=== PATIENT | male | born 1990 | race African-American/Black ===

== ENCOUNTER 2016-12-24 23:26 | Emergency (ER) | payer OTHER ==
[~2016-12-24] VITALS: Ht 183.5 cm; Wt 93.0 kg
[2016-12-24 23:58] VITALS: BP 129/65
--- NOTE | 2016-12-25 00:16 | Emergency Room Report ---
History of Present Illness General Chief Complaint: Chest Pain Source: Patient Present Illness HPI This is a 26-year-old male with a history of asthma as a kid. He said he outgrew it. He's been complaining of chest tightness and shortness of breath on and off for months. Worse with exertion. Worse around smoke. Symptom never hard time sleeping. No fever chills but no nausea no vomiting. No diaphoresis. No radiation. Second complaint is that he gets chest tightness and pain in his throat when he lays down. No melena pain. No vomiting or diarrhea. Allergies: Coded Allergies: No Known Allergies (Unverified , 12/24/16) Patient History Past Medical History: see triage record, old chart reviewed, asthma Past Surgical History: other Pertinent Family History: none Social History: Denies: alcohol use, drug use, smoking Immunizations: other Reviewed Nursing Documentation: PMH: Agreed, PSxH: Agreed Nursing Documentation-PMH Past Medical History: No History, Except For Hx Asthma: Yes Review of Systems Eye: Denies: blurred vision, eye pain ENT: Denies: ear pain, nose congestion, throat swelling Respiratory: Reports: shortness of breath, Denies: cough Cardiovascular: Reports: chest pain, Denies: palpitations Gastrointestinal: Denies: abdominal pain, diarrhea, nausea, vomiting Musculoskeletal: Denies: back pain, joint pain Skin: Denies: rash Neurological: Denies: headache, numbness Endocrine: Denies: increased thirst, increased urine Hematologic/Lymphatic: Denies: easy bruising All Other Systems: negative except mentioned in HPI Physical Exam Vital Signs Date Time Temp Pulse Resp B/P Pulse Ox O2 Delivery O2 Flow Rate FiO2 12/24/16 23:32 98.1 73 19 129/65 98 Room Air vitals normal Sp02 EP Interpretation: reviewed, normal General Appearance: well appearing, no apparent distress, alert Head: normocephalic, atraumatic Eyes: bilateral eye EOMI, bilateral eye PERRL ENT: hearing grossly normal, normal pharynx Neck: full range of motion, supple, no meningismus Respiratory: chest non-tender, lungs clear, normal breath sounds Cardiovascular #1: regular rate, rhythm, no murmur Gastrointestinal: normal bowel sounds, non tender, no mass, no organomegaly, no bruit, non-distended Musculoskeletal: back normal, gait/station normal, normal range of motion Psychiatric: mood/affect normal Skin: warm/dry Medical Decision Making Diagnostic Impression: Primary Impression: Chest pain Qualified Codes: R07.1 - Chest pain on breathing Additional Impressions: Asthma Qualified Codes: J45.20 - Mild intermittent asthma, uncomplicated GERD (gastroesophageal reflux disease) Qualified Codes: K21.9 - Gastro-esophageal reflux disease without esophagitis ER Course Patient with atypical chest pain. This is noncardiac. EKG was not done because of it. Probably his asthma exacerbation. We'll discharge home. He is somewhat he may have some reflux issue also. No evidence of ACS, PE, dissection to name a few. Chest X-Ray Diagnostic Results Chest X-Ray Diagnostic Results : Chest X-Ray Ordered: Yes # of Views/Limited/Complete: 1 View Indication: Chest Pain EP Interpretation: Yes Interpretation: no consolidation, no effusion, no pneumothorax, no acute cardiopulmonary disease Impression: No acute disease Interpreting ER Provider: Electronically signed by Homero Gutierrez MD Last Vital Signs Date Time Temp Pulse Resp B/P Pulse Ox O2 Delivery O2 Flow Rate FiO2 12/24/16 23:58 73 19 Room Air 12/24/16 23:58 98.1 129/65 98 Status: improved Disposition: HOME, SELF-CARE Condition: Stable Scripts Omeprazole Magnesium (PRILOSEC OTC) 20 Mg Tablet. 20 MG ORAL DAILY, #30 TAB Prov: HOMERO GUTIERREZ M.D. 12/25/16 Albuterol Sulfate* (ALBUTEROL SULFATE MDI*) 8.5 Gm Hfa.aer.ad 2 PUFF INH Q4H Y for cough/wheezing, #1 EA 0 Refills Prov: HOMERO GUTIERREZ M.D. 12/25/16 Additional Instructions: Followup with your DrCorazon in 2-3 days if not better. Return if symptom worsen. HOMERO GUTIERREZ M.D. Dec 25, 2016 00:16
[2016-12-25] MEDS ORDERED: PRILOSEC OTC20 MG ORAL (00:20)
[2016-12-25] MEDS ORDERED: ALBUTEROL SULF8.5 GM INH (00:20)
[2016-12-25 00:26] VITALS: BP 129/65
--- NOTE | 2016-12-25 10:58 | Diagnostic Imaging Report ---
Indication: Chest pain Technique: One view of the chest Comparison: none Findings: Lungs and pleural spaces are clear. Heart size is normal. Impression: No acute process
== END 2016-12-25 02:25 | disposition home or self-care (01) ==
LOC: EMR 23:55
DX: R07.89 Other chest pain (principal); J45.909 Unspecified asthma, uncomplicated; K21.9 Gastro-esophageal reflux disease without esophagitis
CPT/HCPCS: 71010; 99284

== ENCOUNTER 2018-08-10 02:31 | Emergency (ER) | payer OTHER ==
[~2018-08-10] VITALS: Ht 182.9 cm; Wt 99.3 kg
[~2018-08-10 02:31] MED LIST: ALBUTEROL SULF8.5 GM INH; PRILOSEC OTC20 MG ORAL
--- NOTE | 2018-08-10 02:48 | NUR ---
ED Nurse Note: Pt walked in ER and c/o R leg pain since yesterday. Pain level 10/10. Pt is AO x 4times, VSS, on room air no distress. ABIGAILD seen Pt at bedside.
[2018-08-10 02:56] VITALS: BP 132/68
[2018-08-10] MEDS ORDERED: HYDROmorphone 1mg/ml Carpuject IM ONE (03:15)
[2018-08-10] MEDS ORDERED: IBUPROFEN600 MG ORAL (03:36)
[2018-08-10] MEDS ORDERED: HYDROCODON-ACE1 EA15 ORAL (03:36)
--- NOTE | 2018-08-10 03:37 | Emergency Room Report ---
History of Present Illness General Chief Complaint: Pain Source: Patient Present Illness HPI Is a 28-year-old male with no past medical history. He presents with chief complaint of right lower back right hip pain radiating to the calf. Onset for last to 3 days. No nausea no vomiting. No rhonchi evidence of bowel or urine. No trauma. No fever. Pain is 9 out of 10. Worse with movement. Better with rest. Allergies: Coded Allergies: No Known Allergies (Unverified , 12/24/16) Patient History Past Medical History: see triage record, old chart reviewed Past Surgical History: none Pertinent Family History: none Social History: Denies: smoking Immunizations: other Reviewed Nursing Documentation: PMH: Agreed; PSxH: Agreed Nursing Documentation-PMH Hx Asthma: Yes Review of Systems Eye: Denies: eye pain, blurred vision ENT: Denies: ear pain, nose congestion, throat swelling Respiratory: Denies: cough, shortness of breath Cardiovascular: Denies: chest pain, palpitations Gastrointestinal: Denies: abdominal pain, diarrhea, nausea, vomiting Musculoskeletal: Reports: back pain; Denies: joint pain Skin: Denies: rash Neurological: Denies: headache, numbness Endocrine: Denies: increased thirst, increased urine Hematologic/Lymphatic: Denies: easy bruising All Other Systems: negative except mentioned in HPI Physical Exam Vital Signs Date Time Temp Pulse Resp B/P (MAP) Pulse Ox O2 Delivery O2 Flow Rate FiO2 08/10/18 02:37 98.4 80 16 126/70 96 Room Air vitals normal Sp02 EP Interpretation: reviewed, normal General Appearance: well appearing, no apparent distress, alert Head: normocephalic, atraumatic Eyes: bilateral eye PERRL, bilateral eye EOMI ENT: hearing grossly normal, normal pharynx Neck: full range of motion, supple, no meningismus Respiratory: chest non-tender, lungs clear, normal breath sounds Cardiovascular #1: regular rate, rhythm, no murmur Gastrointestinal: normal bowel sounds, non tender, no mass, no organomegaly, no bruit, non-distended Musculoskeletal: back normal - Tenderness to the right lumbar paraspinous muscle, gait/station normal, normal range of motion Neurologic: alert, oriented x3 Psychiatric: mood/affect normal Skin: warm/dry Medical Decision Making Diagnostic Impression: Primary Impression: Sciatica of right side ER Course Patient presents with symptoms consistent with sciatica. No red flags to indicate cauda equina syndrome, spinal epidural abscess or neoplastic process. We'll discharge home. Last Vital Signs Date Time Temp Pulse Resp B/P (MAP) Pulse Ox O2 Delivery O2 Flow Rate FiO2 08/10/18 02:56 98.3 68 18 132/68 98 Room Air Status: improved Disposition: HOME, SELF-CARE Condition: Stable Scripts Ibuprofen* (MOTRIN*) 600 Mg Tablet 600 MG ORAL THREE TIMES A DAY, #30 TAB 0 Refills Prov: Homero Gutierrez MD 08/10/18 Hydrocodone/Acetaminophen 5-325* (HYDROCODONE/ACETAMINOPHEN 5-325*) 1 Each Tablet 1 TAB ORAL Q6H PRN for For Pain, #20 TAB 0 Refills Prov: Homero Gutierrez MD 08/10/18 Referrals: NON PHYSICIAN (PCP) Additional Instructions: Follow-up with your doctor in 7 days. No heavy lifting. You may need an MRI if symptoms don't improve. Return if symptom worsen. Homero Gutierrez MD Aug 10, 2018 03:37
[2018-08-10 03:45] VITALS: BP 130/70
--- NOTE | 2018-08-10 03:45 | NUR ---
ER DISCHARGE NOTE: Patient is cleared to be discharged per ERMD, pt is aox4, on room air, with stable vital signs. pt was given dc and prescription instructions, pt was able to verbalize understanding, pt id band removed without complications. pt is able to ambulate with steady gait with girlfriend. pt took all belongings.
== END 2018-08-10 03:45 | disposition home or self-care (01) ==
LOC: EMR 02:55
DX: M54.41 Lumbago with sciatica, right side (principal); J45.909 Unspecified asthma, uncomplicated
CPT/HCPCS: 96372; 99283; J1170

== ENCOUNTER 2019-04-17 18:26 | Emergency (ER) | payer OTHER ==
[~2019-04-17] VITALS: Ht 180.3 cm; Wt 104.3 kg
[~2019-04-17 18:26] MED LIST changes: +HYDROCODON-ACE1 EA15 ORAL; +IBUPROFEN600 MG ORAL
--- NOTE | 2019-04-17 18:30 | NUR ---
ED Nurse Note: Patient arrived to ED by car from home stating that he has had a cough and flu-like symptoms for 3 days. He states that he feels 10/10 chest pain only when coughing. Now, at rest, he states he has no pain. Patient Richard x 4, bed in lowest position, patient on the monitor technician. Flu swab sent to lab. Addendum: 04/17/19 at 1856 by TRAN ED Nurse Note: Patient states that he feels the chills while sleeping at night. Sometimes will have to sleep with multiple layers to stay warm, then will be too hot, on and off thorughout the night. Patient currently afebrile, temp 98.8
[2019-04-17 18:35] VITALS: BP_SYST 137; BP_SYST 140; BP_DIAS 101; BP_DIAS 95
--- NOTE | 2019-04-17 18:47 | Emergency Room Report ---
History of Present Illness General Chief Complaint: Upper Respiratory Illness Source: Patient Present Illness HPI 28-year-old male who presents with productive cough for 1 to 2-week duration, reported brown sputum production, And associated subjective fevers. Patient has been reported using NyQuil with no improvement of symptoms. Patient has a history of asthma which he takes an inhaler for. But he denies any wheezing or requiring his inhaler at this time. Patient states he did not get the influenza vaccination this year. Patient otherwise is fully vaccinated.. Allergies: Coded Allergies: No Known Allergies (Unverified , 12/24/16) Nursing Documentation-[facility] Past Medical History: No History, Except For Hx Asthma: Yes Review of Systems Constitutional: Reports: fever; Denies: chills Respiratory: Reports: cough, sputum; Denies: shortness of breath, wheezing Cardiovascular: Denies: chest pain, palpitations Gastrointestinal: Denies: diarrhea, vomiting Genitourinary: Denies: hematuria, pain Musculoskeletal: Denies: joint swelling Skin: Denies: rash, lesions Neurological: Denies: headache, dizziness Physical Exam Vital Signs Date Time Temp Pulse Resp B/P (MAP) Pulse Ox O2 Delivery O2 Flow Rate FiO2 04/17/19 18:28 100.6 111 22 143/103 (116) 95 Room Air Sp02 EP Interpretation: reviewed General Appearance: well appearing, no apparent distress, non-toxic Head: normocephalic, atraumatic Eyes: bilateral eye normal inspection ENT: hearing grossly normal, EOM grossly intact, moist mucus membranes Neck: supple Respiratory: lungs clear, normal breath sounds, no respiratory distress, speaking full sentences Cardiovascular #1: regular rate, rhythm, normal capillary refill Cardiovascular #2: 2+ radial (R), 2+ radial (L) Gastrointestinal: soft, non-distended Rectal: deferred Musculoskeletal: moves extm spontaneously, no lower extremity edema Neurologic: grossly normal Psychiatric: mood/affect normal Skin: warm/dry, normal turgor Medical Decision Making Diagnostic Impression: Primary Impression: Influenza Additional Impression: Atypical pneumonia ER Course 28-year-old male who presents with brown sputum productive cough and subjective fevers for 1 to 2 weeks. Patient did not have influenza vaccination Differential includes: Influenza, pneumonia, asthma exacerbation, upper respiratory infection. Will perform chest x-ray and influenza testing. Lab Results Impression Influenza positive Chest X-Ray Diagnostic Results Chest X-Ray Diagnostic Results : Chest X-Ray Ordered: Yes # of Views/Limited/Complete: 2 View Indication: Shortness of Breath EP Interpretation: Yes Interpretation: no consolidation, other - Increased pulmonary markings consistent with atypical pneumonia Last Vital Signs Date Time Temp Pulse Resp B/P (MAP) Pulse Ox O2 Delivery O2 Flow Rate FiO2 04/17/19 18:28 100.6 111 22 143/103 (116) 95 Room Air Disposition: HOME, SELF-CARE Condition: Stable Scripts Azithromycin* (ZITHROMAX*) 250 Mg Tablet 250 MG ORAL DAILY, #6 TAB 0 Refills Take two tables once daily for 1 day, then one tablet once daily for 4 days. Prov: Harris Hawkins M.D. 04/17/19 Oseltamivir Phosphate (Tamiflu) 75 Mg Capsule 75 MG ORAL TWICE A DAY for 5 Days, #10 CAP Prov: Harris Hawkins M.D. 04/17/19 Patient Instructions: Community-Acquired Pneumonia, Adult Additional Instructions: Please take antibiotics and antivirals as prescribed. Follow-up with your primary care doctor in 2 to 3 days for reevaluation. If symptoms not improving , any new symptoms, such as nausea vomiting, fever above 105, respiratory distress or difficulty breathing. Please return to emergency room for further testing. Harris Hawkins M.D. Apr 17, 2019 18:47
--- NOTE | 2019-04-17 19:02 | NUR ---
ED Nurse Note: received patient from jass mann. patient resting in bed comfortably with no acute distress. assessed temp 102.5. notified ermd; no new orders at this time.
--- NOTE | 2019-04-17 19:04 | NUR ---
HAND-OFF: Report given to Aaron Puri RN.
[2019-04-17 19:06] VITALS: BP 137/95
[2019-04-17] MEDS ORDERED: TAMIFLU75 MG ORAL (19:25)
[2019-04-17] MEDS ORDERED: ZITHROMAX250 MG ORAL (19:25)
--- NOTE | 2019-04-17 19:39 | NUR ---
ED Nurse Note: patient ambulated to bathroom with steady gait. pt aware of pending discharge; waiting for dc papers
[2019-04-17 19:45] VITALS: BP 137/95
--- NOTE | 2019-04-17 19:45 | NUR ---
ER DISCHARGE NOTE: Patient is cleared to be discharged per ERMD, pt is aox4, on room air, with stable vital signs. pt was given dc and prescription instructions, pt was able to verbalize understanding, pt id band removed. pt is able to ambulate with steady gait. pt took all belongings.
--- NOTE | 2019-04-17 19:48 | Diagnostic Imaging Report ---
Indication: Cough Technique: 2 views of the chest Comparison: 12/25/2016 Findings: Lungs and pleural spaces are clear. The heart size is normal. The bones are unremarkable. No significant interim change. Impression: Negative This agrees with the preliminary interpretation provided overnight by [facility] service.
== END 2019-04-17 19:45 | disposition home or self-care (01) ==
LOC: EMR 18:38
DX: J10.00 Influenza due to other identified influenza virus with unspecified type of pneumonia (principal); J45.909 Unspecified asthma, uncomplicated
CPT/HCPCS: 71046; 86710; Z7502; 99283

== ENCOUNTER → 2020-06-30 | Emergency (ER) | payer OTHER ==
[~2020-06-30] VITALS: Ht 185.4 cm; Wt 104.3 kg
[~2020-06-30] MED LIST changes: +FAMOTIDINE20 MG ORAL; +IBUPROFEN600 M1 ORAL; +Ketorolac 30mg Inj IV ONE; +Mylanta II UD 30ml ORAL ONE; +TAMIFLU75 MG ORAL; +ZITHROMAX250 MG ORAL
[2020-06-30 19:23] VITALS: BP 138/77
--- NOTE | 2020-06-30 19:25 | NUR ---
ED Nurse Note: patient came through ambulatory triage complaints of chest pain x3 days when taking in deep breathes, no other complaints, hx of asthma vitals stable patient ambulatory aoX4
--- NOTE | 2020-06-30 19:51 | NUR ---
medication administered, blood drawn and sent to lab
--- NOTE | 2020-06-30 19:51 | Emergency Room Report ---
History of Present Illness General Chief Complaint: Chest Pain Source: Patient Present Illness HPI 4 days ago the patient was drinking a lot of champagne. He woke up with a hangover and was vomiting. He denies vomiting any blood. It started off with bile and then after that he tried drinking water and only vomited water. He has had some diarrhea that is been yellowish-brown but not black or tarry. He den ies any fevers or chills. The pain in his chest is sternal and more pleuritic. He also feels worse when he lays back. When it was worse it was 9/10 and at this time it is less than a 7. He took some BC powder yesterday. Patient denies exposure to Covid positive contacts. No fevers, chills, sore throat, palpitations, dysuria, abdominal pain, shortness of breath, joint pain, rashes, depression, anxiety, visual changes, dizziness. 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 Reviewed Nursing Documentation: PMH: Agreed; PSxH: Agreed Nursing Documentation-PMH Past Medical History: No History, Except For Hx Asthma: Yes Review of Systems All Other Systems: negative except mentioned in HPI Physical Exam Vital Signs Date Time Temp Pulse Resp B/P (MAP) Pulse Ox O2 Delivery O2 Flow Rate FiO2 06/30/20 19:16 98.8 68 16 138/77 (97) 96 Room Air Sp02 EP Interpretation: reviewed, normal General Appearance: well appearing, no apparent distress, GCS 15 Head: normocephalic Eyes: bilateral eye normal inspection, bilateral eye PERRL, bilateral eye EOMI ENT: moist mucus membranes Neck: supple Respiratory: lungs clear, normal breath sounds, no respiratory distress, no accessory muscle use, speaking full sentences, other - No crepitance. Equal breath sounds bilaterally Cardiovascular #1: regular rate, rhythm, no murmur Cardiovascular #2: 2+ radial (R) Gastrointestinal: normal inspection, normal bowel sounds, non tender, no mass, non-distended Musculoskeletal: back normal, normal range of motion, gait/station normal Neurologic: alert, oriented x3, grossly normal Psychiatric: mood/affect normal Skin: no rash, warm/dry Medical Decision Making Diagnostic Impression: Primary Impression: Chest pain Qualified Codes: R07.89 - Other chest pain Additional Impressions: Vomiting Qualified Codes: R11.2 - Nausea with vomiting, unspecified Renal insufficiency ER Course Patient presents with pleuritic and positional chest pain that began 3 days ago after episodes of vomiting. Differential includes chest wall strain, esophagitis, Mary-Small tear, pneumothorax, pneumomediastinum, Boerhaave's amongst others. Patient evaluated with EKG, chest x-ray and labs. Patient placed on a library monitor. Patient given a dose of Toradol. Based on vital signs and oximetry and story doubt pulmonary embolus. EKG without injury. Chest x-ray no pneumothorax or mediastinal air. Labs remarkable for minimally elevated creatinine. Patient improved with treatment. He does complain about heartburn type feeling and urged to burp without the ability to do so. Mylanta given. Discussed findings with patient and treatment plan. No medical emergency at this time. Patient improved and stable for outpatient observation and treatment. Laboratory Tests Test 06/30/20 19:39 White Blood Count 9.5 K/UL (4.8-10.8) Red Blood Count 5.31 M/UL (4.70-6.10) Hemoglobin 15.7 G/DL (14.2-18.0) Hematocrit 46.2 % (42.0-52.0) Mean Corpuscular Volume 87 FL (80-99) Mean Corpuscular Hemoglobin 29.6 PG (27.0-31.0) Mean Corpuscular Hemoglobin Concent 34.1 G/DL (32.0-36.0) Red Cell Distribution Width 13.2 % (11.6-14.8) Platelet Count 289 K/UL (150-450) Mean Platelet Volume 7.0 FL (6.5-10.1) Neutrophils (%) (Auto) 65.0 % (45.0-75.0) Lymphocytes (%) (Auto) 26.8 % (20.0-45.0) Monocytes (%) (Auto) 4.8 % (1.0-10.0) Eosinophils (%) (Auto) 2.5 % (0.0-3.0) Basophils (%) (Auto) 1.0 % (0.0-2.0) Prothrombin Time 10.5 SEC (9.30-11.50) Prothrombin Time INR 0.9 (0.9-1.1) Activated Partial Thromboplast Time 26 SEC (23-33) Sodium Level 138 MMOL/L (136-145) Potassium Level 3.6 MMOL/L (3.5-5.1) Chloride Level 103 MMOL/L (98-107) Carbon Dioxide Level 28 MMOL/L (21-32) Anion Gap 7 mmol/L (5-15) Blood Urea Nitrogen 11 mg/dL (7-18) Creatinine 1.4 MG/DL (0.55-1.30) H Estimated Glomerular Filtration Rate > 60 mL/min (>60) Glucose Level 100 MG/DL (74-106) Calcium Level 9.5 MG/DL (8.5-10.1) Total Bilirubin 0.4 MG/DL (0.2-1.0) Aspartate Amino Transferase (AST) 20 U/L (15-37) Alanine Aminotransferase (ALT) 40 U/L (12-78) Alkaline Phosphatase 106 U/L (46-116) Total Creatine Kinase 215 U/L (26-308) Troponin I 0.004 ng/mL (0.000-0.056) Pro-B-Type Natriuretic Peptide 10 pg/mL (0-125) Total Protein 7.6 G/DL (6.4-8.2) Albumin 3.8 G/DL (3.4-5.0) Globulin 3.8 g/dL Albumin/Globulin Ratio 1.0 (1.0-2.7) EKG Diagnostic Results Rate: normal Rhythm: NSR ST Segments: no acute changes Rhythm Strip Diag. Results EP Interpretation: yes Rhythm: NSR, no PVC's, no ectopy Chest X-Ray Diagnostic Results Chest X-Ray Diagnostic Results : Chest X-Ray Ordered: Yes # of Views/Limited/Complete: 1 View Indication: Chest Pain EP Interpretation: Yes Interpretation: no consolidation, no effusion, no pneumothorax Impression: No acute disease Electronically Signed by: Electronically signed by Junior Cadena MD Last Vital Signs Date Time Temp Pulse Resp B/P (MAP) Pulse Ox O2 Delivery O2 Flow Rate FiO2 06/30/20 22:19 98.5 68 20 132/76 100 Room Air Status: improved Disposition: HOME, SELF-CARE Condition: Improved Scripts Famotidine* (Pepcid 20mg tablet*) 20 Mg Tablet 20 MG ORAL DAILY for Gerd, #20 TAB 0 Refills Prov: Junior Cadena MD 06/30/20 Ibuprofen* (MOTRIN*) 600 Mg Tablet 600 MG ORAL Q6H PRN for FOR PAIN, #20 TAB 0 Refills Prov: Junior Cadena MD 06/30/20 Referrals: NON PHYSICIAN (PCP) Junior Cadena MD Jun 30, 2020 19:51
[2020-06-30 20:03] LABS: EOSINOPHILS % (AUTO) 2.5 % (0.0-3.0); HEMATOCRIT 46.2 % (42.0-52.0); HEMOGLOBIN 15.7 G/DL (14.2-18.0); LYMPHOCYTES % (AUTO) 26.8 % (20.0-45.0); MEAN CORPUSCULAR VOLUME 87 FL (80-99); MONOCYTES % (AUTO) 4.8 % (1.0-10.0); PLATELET COUNT 289 K/UL (150-450); RED BLOOD COUNT 5.31 M/UL (4.70-6.10); RED CELL DISTRIBUTION WIDTH 13.2 % (11.6-14.8); WHITE BLOOD COUNT 9.5 K/UL (4.8-10.8)
[2020-06-30 20:11] LABS: ANION GAP 7 mmol/L (5-15); BLOOD UREA NITROGEN 11 mg/dL (7-18); CALCIUM 9.5 MG/DL (8.5-10.1); CARBON DIOXIDE 28 MMOL/L (21-32); CHLORIDE 103 MMOL/L (98-107); CREATININE 1.4 MG/DL (0.55-1.30); POTASSIUM 3.6 MMOL/L (3.5-5.1); SODIUM 138 MMOL/L (136-145)
[2020-06-30 20:12] LABS: INR 0.9 (0.9-1.1)
[2020-06-30 20:22] LABS: ALANINE AMINOTRANSFERASE 40 U/L (12-78); ALBUMIN 3.8 G/DL (3.4-5.0); ALKALINE PHOSPHATASE 106 U/L (46-116); ASPARTATE AMINO TRANSFERASE 20 U/L (15-37); BILIRUBIN,TOTAL 0.4 MG/DL (0.2-1.0); CREATINE KINASE 215 U/L (26-308)
[2020-06-30 22:19] VITALS: BP 132/76
--- NOTE | 2020-06-30 22:21 | NUR ---
ER DISCHARGE NOTE: Patient is cleared to be discharged per ERMD, pt is aox4, on room air, with stable vital signs. pt was given dc and prescription instructions, pt was able to verbalize understanding, pt id band and iv site removed without complications. pt is able to ambulate with steady gait. pt took all belongings.
--- NOTE | 2020-07-01 11:07 | Diagnostic Imaging Report ---
Indication: Chest pain Technique: XRAY Chest 1v Comparison: None Findings: Heart size and mediastinal contours within normal limits allowing for AP technique and low lung volumes. There is subtle interstitial/vascular prominence. No dense consolidation. No pleural effusion or pneumothorax. No acute osseous abnormality. Impression: Limited exam with low lung volumes. Subtle interstitial/vascular prominence likely artifactual and related to low lung volumes. Possibility of subtle interstitial infiltrates are not excluded. Please correlate clinically.
== END | disposition home or self-care (01) ==
LOC: EMR 19:28
DX: R07.89 Other chest pain (principal); R11.2 Nausea with vomiting, unspecified; N28.9 Disorder of kidney and ureter, unspecified; J45.909 Unspecified asthma, uncomplicated
CPT/HCPCS: 36415; 71045; 80053; 82550; 83880; 84484; 85025; 85610; 85730; 93005; 96374; J1885; Z7502; 99284